=== PATIENT | male | born 1970 | race African-American/Black ===

== ENCOUNTER 2017-06-03 21:19 | Emergency (ER) | payer MEDICAID, OTHER ==
[~2017-06-03] VITALS: Ht 170.2 cm; Wt 84.0 kg
[2017-06-03 21:27] VITALS: Ht 170.2 cm; Wt 84.0 kg
[2017-06-03] MEDS ORDERED: CEPH-443 PO (23:51)
[2017-06-04] MEDS ORDERED: DIPHTH/TET/ACEL PERTUSS (ADULT) 0.5 ML VIAL IM* ONE
--- NOTE | 2017-06-04 00:04 | ERD ---
ER Documentation Chief Complaint Chief Complaint lower lip laceration from car coil spring at around 1300 HPI 47-year-old male presents here to emergency department for complaints of lower lip laceration after a car coil spring and hit the lower lip. Patient put some adhesive on it, and now is more approximated. Patient is complaining of pain sharp pain 4/10 scale, as was upon touching the area. Patient did not take any medications to help with symptoms. Patient does not have any other injuries. Unknown last tetanus immunization ROS All systems reviewed and are negative except as per history of present illness. Medications Home Meds Active Scripts Cephalexin* (Keflex*) 500 Mg Capsule, 500 MG PO QID for 5 Days, CAP Prov:MACIEL HUANG NP 06/03/17 Allergies Allergies: Coded Allergies: No Known Drug Allergies (Verified Allergy, Unknown, 06/03/17) PMhx/Soc Medical and Surgical Hx: pt denies Surgical Hx Hx Miscellaneous Medical Probl: Yes (Renal disease) FmHx Family History: No coronary disease, No diabetes, No other Physical Exam Vitals Vital Signs Date Time Temp Pulse Resp B/P Pulse Ox O2 Delivery O2 Flow Rate FiO2 06/03/17 21:27 97.6 64 20 140/80 98 Physical Exam GENERAL: The patient is well developed and appropriate for usual state of health, in no apparent distress. HEENT: Atraumatic. Ears: Normal tympanic membrane, no erythema or bulging. No ear canal swelling. No ear discharge. Nose: normal nasal turbinates, no erythema or swelling. Normal nasal discharge. Throat: oropharynx clear. No tonsillar swelling or tonsillar exudates. No lymphadenopathy. Noted 1 cm lower lip laceration noted, bleeding controlled, well approximated CHEST: Clear to auscultation bilaterally. There are no rales, wheezes or rhonchi. HEART: Regular rate and rhythm. No murmurs, clicks, rubs or gallops. No S3 or S4. ABDOMEN: Soft, nontender and nondistended. Good bowel sounds. No rebound or guarding. No gross peritonitis. No gross organomegaly or masses. No Roy sign or McBurney point tenderness. BACK: No midline or flank tenderness. EXTREMITIES: Equal pulses bilaterally. There is no peripheral clubbing, cyanosis or edema. No focal swelling or erythema. Full range of motion. Grossly neurovascularly intact. NEURO: Alert and oriented. Cranial nerves 2-12 intact. Motor strength in all 4 extremities with 5/5 strength. Sensation grossly intact. Normal speech and gait. SKIN: There is no apparent rash or petechia. The skin is warm and dry. HEMATOLOGIC AND LYMPHATIC: There is no evidence of excessive bruising or lymphedema. No gross cervical, axillary, or inguinal lymphadenopathy. Results 24 hrs Current Medications Medications (Trade) Dose Ordered Sig/Ashli Route PRN Reason Start Time Stop Time Status Last Admin Dose Admin Diphtheria/ Tetanus/Acell Pertussis (Adacel) 0.5 ml ONCE ONCE IM* 06/04/17 00:00 06/04/17 00:01 Tdap was given to prevent tetanus. Patient tolerated medication well. Procedures/MDM Medical decision making: Patient symptoms most likely consistent with a lip laceration, it is a really approximated using an adhesive. No involvement of the vermilion border. No symptoms of any foreign body. Tetanus vaccine was updated. Patient was given Provigil for Keflex to prevent infection, is advised to follow-up with primary care doctor in 2 days for a wound check. Patient advised to return to emergency department for any worsening symptoms. Disposition: Home. Stable. Departure Diagnosis: Primary Impression: Lip laceration Encounter type: initial encounter Qualified Code: S01.511A - Lip laceration , initial encounter Condition: Stable Patient Instructions: Laceration, Lip/Mouth MACIEL HUANG NP Jun 04, 2017 00:04
== END 2017-06-04 00:04 | disposition home or self-care (01) ==
LOC: FTE 21:19
DX: S01.511A Laceration without foreign body of lip, initial encounter (principal); W22.8XXA Striking against or struck by other objects, initial encounter; Y92.9 Unspecified place or not applicable
CPT/HCPCS: 90471; 90715; Z7502